=== PATIENT | female | born 1980 | race Caucasian/White ===

== ENCOUNTER 2022-08-13 20:01 | Emergency (ER) | payer BC | END 2022-08-13 22:01 | disposition home or self-care (01) | LOC: JD.ED 20:01 | DX: N99.821 Postprocedural hemorrhage of a genitourinary system organ or structure following other procedure (principal); Z88.8 Allergy status to other drugs, medicaments and biological substances; Z88.5 Allergy status to narcotic agent; Z88.0 Allergy status to penicillin; Z88.1 Allergy status to other antibiotic agents; Z90.710 Acquired absence of both cervix and uterus; Z79.899 Other long term (current) drug therapy | CPT/HCPCS: 36415; 80048; 85025; 99283; 99284 ==